=== PATIENT | female | born 1995 | race Caucasian/White ===

== ENCOUNTER 2017-09-06 17:41 | Emergency (ER) | payer OTHER ==
--- NOTE | 2017-09-06 17:56 | PDOC ---
Rapid Medical Evaluation Chief Complaint: Psychiatric Time Seen by Provider: 09/06/17 17:51 Medical Evaluation: Allergies Allergy/AdvReac Type Severity Reaction Status Date / Time No Known Allergies Allergy Verified 09/06/17 17:46 09/06/17 17:51 The patient presents with a chief complaint of: [" I want to talk to a therapist " Wants to hurt herself. H/O anxiety and depression. Was supposed to be on meds , does not want to be reliant on them" . ] I have performed a brief in-person evaluation of this patient. Pertinent physical exam findings: vss, [Lungs clear, Crying, Tachycardic, Admitting to wanting to hurt herself. Has a plan to cut herself. ] I have ordered the following: [one to one obs, cbc, cmp, ETOH, UA, urine tox, urine culture] The patient will proceed to the ED for further evaluation. Discharge Disposition - Diagnosis Anxiety, Suicidal ideation - Referrals - Patient Instructions - Post Discharge Activity
[2017-09-06 17:59] VITALS: BMI 26.2
[2017-09-06 18:29] LABS: BASO % 0.3 % (0-2.0); EOS % 1.3 % (0-4.5); HEMATOCRIT 36.7 % (32.4-45.2); HEMOGLOBIN 11.7 GM/dL (10.7-15.3); LYMPH % 33.5 % (8-40); MCH 25.5 pg (25.7-33.7); MCHC 31.7 g/dl (32.0-36.0); MEAN CELL VOLUME 80.3 fl (80-96); MEAN PLT VOLUME 9.4 fl (7.5-11.1); MONO % 7.6 % (3.8-10.2); NEUT % 57.3 % (42.8-82.8); PLATELET COUNT 203 K/MM3 (134-434); RBC 4.57 M/mm3 (3.60-5.2); RDW 16.5 % (11.6-15.6)
[2017-09-06 18:31] LABS: HCG,QUALITATIVE URINE NEGATIVE
[2017-09-06 18:34] LABS: URINE APPEARANCE CLEAR; URINE BILIRUBIN NEGATIVE (NEGATIVE); URINE BLOOD NEGATIVE (NEGATIVE); URINE COLOR STRAW; URINE GLUCOSE (UA) NEGATIVE (NEGATIVE); URINE KETONE 1+ (NEGATIVE); URINE LEUK ESTERASE NEGATIVE (NEGATIVE); URINE NITRITE NEGATIVE (NEGATIVE); URINE PROTEIN NEGATIVE (NEGATIVE); URINE UROBILINOGEN NEGATIVE mg/dL (0.2-1.0)
[2017-09-06 18:44] LABS: COCAINE, UR NEGATIVE ng/ml (CUTOFF=300); METHADONE, UR NEGATIVE ng/ml (CUTOFF=300); OPIATES, URI NEGATIVE ng/ml (CUTOFF=300); PHENCYCLIDINE,URINE NEGATIVE ng/ml (CUTOFF=25); URINE AMPHETAMINES NEGATIVE ng/ml (CUTOFF=500); URINE BARBITURATES NEGATIVE ng/ml (CUTOFF=200); URINE BENZODIAZEPINES NEGATIVE ng/ml (CUTOFF=200)
[2017-09-06 18:51] LABS: ALBUMIN 4.2 g/dl (3.4-5.0); ANION GAP 9 (8-16); BILIRUBIN,TOTAL 0.3 mg/dL (0.2-1.0); BLOOD UREA NITROGEN 8 mg/dL (7-18); CALCIUM 8.5 mg/dL (8.5-10.1); CHLORIDE 107 mmol/L (98-107); CO2 23 mmol/L (21-32); CREATININE 0.6 mg/dL (0.55-1.02); GLUCOSE,RANDOM 85 mg/dL (74-106); POTASSIUM 3.7 mmol/L (3.5-5.1); SGOT/AST 20 U/L (15-37); SGPT/ALT 42 U/L (12-78); SODIUM 139 mmol/L (136-145)
[2017-09-06 18:52] LABS: ALK PHOS 82 U/L (45-117); TOT PROT 7.7 g/dl (6.4-8.2)
--- NOTE | 2017-09-06 19:24 | PDOC ---
History of Present Illness - General Chief Complaint: Psychiatric Stated Complaint: EVALUATION Time Seen by Provider: 09/06/17 17:51 History Source: Patient - History of Present Illness Initial Comments: 22 year old female with depressive thought, frequent crying and feeling worthless for " several months" presented to the ED with suicidal ideation. Patient reports often thinking about overdosing herself. As per patient seen in [facility] for depression offered admission and patient refused.patient has not seen the therapist since that visit. patient reports, " i thought i could do it myself." Patient reports feeling anxious at work. Patient is crying consolable thourghout the interaction. no eye contact. family history : mother and maternal grandfather with psychiatrist problems including depression; Father with history of anxiety/. Past History - Past Medical History Allergies/Adverse Reactions: Allergies No Known Allergies Allergy (Verified 09/06/17 17:46) Home Medications: Ambulatory Orders NK [No Known Home Medication] 09/06/17 Psychosocial History: Yes: anxiety, panic attacks, other (asthma) - Family History Significant Family History: Yes: other (mother and grandfather with depression, father with anxiety) - Reproductive History Is Patient Now?: No - Immunization History Immunization Up to Date: Yes - Social History Smoking Status: Never smoked *Review of Systems - Review of Systems Able to Perform ROS?: Yes Constitutional: No: Symptoms Reported, See HPI, Chills, Diaphoresis, Fever, Loss of Appetite, Malaise, Night Sweats, Weakness, Weight Stable, Unintentional Wgt. Loss, Unexplained wgt Loss, Other Psychiatric: Yes: Depression, Frequent Crying, Stressors, Sleep Pattern Change *Physical Exam - Vital Signs Last Vital Signs Temp Pulse Resp BP Pulse Ox 98.0 F 91 H 18 150/83 100 09/06/17 17:48 09/06/17 17:48 09/06/17 17:48 09/06/17 17:48 09/06/17 17:48 - Physical Exam General Appearance: Yes: Appropriately Dressed, Other (crying) Respiratory/Chest: positive: Lungs Clear, Normal Breath Sounds Cardiovascular: positive: Regular Rhythm Gastrointestinal/Abdominal: positive: Normal Bowel Sounds, Soft Extremity: positive: Normal Capillary Refill, Normal Inspection, Normal Range of Motion Integumentary: positive: Dry, Warm Neurologic: positive: Fully Oriented, Alert Plan - Order(s) Order(s): Orders Medication Instructions Recorded NK [No Known Home Medication] 09/06/17 - Laboratory CBC & Chemistry Diagram: 09/06/17 18:12 09/06/17 18:12 Lab/Micro Results: 09/06/17 09/06/17 09/06/17 18:15 18:15 18:12 Sodium 139 Potassium 3.7 Chloride 107 Carbon Dioxide 23 Anion Gap 9 BUN 8 Creatinine 0.6 Creat Clearance w eGFR > 60 Random Glucose 85 Calcium 8.5 Total Bilirubin 0.3 AST 20 ALT 42 Alkaline Phosphatase 82 Total Protein 7.7 Albumin 4.2 Urine Color Straw Urine Appearance Clear Urine pH 6.0 Ur Specific Conway 1.011 Urine Protein Negative Urine Glucose (UA) Negative Urine Ketones 1+ H Urine Blood Negative Urine Nitrite Negative Urine Bilirubin Negative Urine Urobilinogen Negative Ur Leukocyte Esterase Negative Urine HCG, Qual Negative Opiates Screen Negative Methadone Screen Negative Barbiturate Screen Negative Phencyclidine Screen Negative Ur Amphetamines Screen Negative MDMA (Ecstasy) Screen Negative Benzodiazepines Screen Negative Cocaine Screen Negative U Marijuana (THC) Screen Negative 09/06/17 18:12 RBC 4.57 MCV 80.3 MCHC 31.7 L RDW 16.5 H MPV 9.4 Neutrophils % 57.3 Lymphocytes % 33.5 Monocytes % 7.6 Eosinophils % 1.3 Basophils % 0.3 - Consult/PCP Time Called: 19:35 (left message with Dr. magallon) Case discussed with consulting physician: Jose De Jesus Magallon (I spoke to Dr. magallon. patien to be evaluated in the AM by psychiatrist. ) *DC/Admit/Observation/Transfer Diagnosis at time of Disposition: Anxiety, Suicidal ideation - Referrals Referrals: Ana Shell MD [Primary Care Provider] - - Patient Instructions - Post Discharge Activity
--- NOTE | 2017-09-07 08:08 | PDOC ---
*Physical Exam - Vital Signs Last Vital Signs Temp Pulse Resp BP Pulse Ox 98.0 F 76 17 106/60 100 09/06/17 17:48 09/07/17 06:56 09/07/17 06:56 09/07/17 06:56 09/07/17 06:56 - Physical Exam Comments: 09/07/17 08:08 Crying intermittently throughout eval General Appearance: Yes: Appropriately Dressed HEENT: positive: Normal Voice Neck: positive: Supple Respiratory/Chest: negative: Respiratory Distress Extremity: positive: Other Integumentary: positive: Dry, Warm Neurologic: positive: Fully Oriented, Alert, Normal Mood/Affect ED Treatment Course - LABORATORY CBC & Chemistry Diagram: 09/06/17 18:12 09/06/17 18:12 - ADDITIONAL ORDERS Additional order review: 09/06/17 18:12 RBC 4.57 MCV 80.3 MCHC 31.7 L RDW 16.5 H MPV 9.4 Neutrophils % 57.3 Lymphocytes % 33.5 Monocytes % 7.6 Eosinophils % 1.3 Basophils % 0.3 - Consult/PCP Time Called: 19:35 (left message with Dr. magallon) Case discussed with consulting physician: Jose De Jesus Magallon (I spoke to Dr. magallon. patien to be evaluated in the AM by psychiatrist. ) Medical Decision Making - Medical Decision Making 09/07/17 07:57 Patient signed out to me at 7 AM by RITA Venegas 22-year-old female, history of depression, BIB father with worsening depression and intermittent suicidal ideation. Pt interviewed without father at bedside and tells me she has had depression since eighth grade. Not able to point to any obvious source, but states she has been bullied, mostly at school her, entire life. Pt currently lives at home with parents and siblings. Does not go to school but is currently employed. Pt states mother has depression "when it 's cold outside". Father admits to having anxiety his entire life. States she has periods of high and low moods and that the low moods come on spontaneously. Pt admits to thoughts of suicide "at times" but has never had a plan or made an attempt. Denies any suicidal ideation at this time and has never hallucinated. No HI. Patient states she has seen a therapist in the past for "anxiety" and that they gave her medication, which she never took meds for unclear reasons. States she is finally ready for help because symptoms have gotten worse recently. Patient was asked by me if she wants to be or thinks she need to be admitted, at which point pt says no. After further discussion, patient states her desire is to start seeing a psychiatrist. I also had conversation with father separately who appears overwhelmed. States daughter seems unhappy at home and is always angry and does not want to listen. Father agrees that patient needs help at this point agreed to wait long enough in ED so I can make an appointment for patient. 1:1 remains at bedside 09/07/17 09:40 I contacted adolescent psych clinic in the [place] at [address] and was able to make an appointment for patient for this . Patient and parent given information and will follow-up. Strict return precautions given to pt and family. Patient discharged in stable condition and denies any suicidal or homicidal ideation at time of discharge. Feels safe going home. Dr. Magallon was contacted and given update *DC/Admit/Observation/Transfer Diagnosis at time of Disposition: Anxiety, Suicidal ideation Depression Qualifiers: Depression Type: unspecified Qualified Code(s): F32.9 - Major depressive disorder, single episode, unspecified - Discharge Dispostion Disposition: HOME Condition at time of disposition: Improved - Referrals Referrals: Ana Shell MD [Primary Care Provider] - - Patient Instructions Printed Discharge Instructions: Depression Additional Instructions: You have an appointment at [facility], which is located at [address] [place], [address]. Their phone number is [phone]. Your appointment is this September 09 at 12 noon. They are located on the first floor. If symptoms worsen prior to your appointment, return to the ER immediately - Post Discharge Activity
[2017-09-07 10:05] VITALS: BP 113/66; PULSE 69; TEMP 98.2
== END 2017-09-07 10:05 | disposition home or self-care (01) ==
LOC: JER 17:41
DX: F32.9 Major depressive disorder, single episode, unspecified (principal)
CPT/HCPCS: 36415; 80053; 80307; 81003; 84443; 84703; 85025; 87086; 99283-25

== ENCOUNTER 2019-01-05 13:06 | Emergency (ER) | payer OTHER ==
[2019-01-05 13:22] VITALS: BP 141/94; PULSE 103; TEMP 98; BMI 31.0
--- NOTE | 2019-01-05 13:22 | PDOC ---
Rapid Medical Evaluation Time Seen by Provider: 01/05/19 13:19 Medical Evaluation: Allergies Allergy/AdvReac Type Severity Reaction Status Date / Time No Known Allergies Allergy Verified 09/06/17 17:46 01/05/19 13:19 I have performed a brief in-person evaluation of this patient. The patient presents with a chief complaint of: itching rash x 1 week intermittent, eyes feel heavy, took claritin and "something OTC" w/o relief Pertinent physical exam findings: well appearing, excoriated lesions to arms I have ordered the following: nothing The patient will proceed to the ED for further evaluation.
--- NOTE | 2019-01-05 15:07 | PDOC ---
History of Present Illness - General Chief Complaint: Rash Stated Complaint: ALLERGIC REACTION Time Seen by Provider: 01/05/19 13:19 History Source: Patient Exam Limitations: No Limitations - History of Present Illness Initial Comments: 01/05/19 15:07 Patient here with an outbreak of worsening eczema. States was at work last weekend, had an onset of acute itching swelling and an ALLERGIC type rash covering most of body including face which spontaneously resolved. States incident reoccurred today. Denies any changes in soaps, topical creams, environmental issues. Was seen by dermatology earlier in the week and prescribed heavy steroid cream which she has just started using last night. Patient denies any swelling to lips, tongue problems. Denies any fevers or evidence of infection to these areas of itching, denies any exposure to contagious diseases. Patient suffers from severe eczema Timing/Duration: reports: getting worse, intermittent Location: reports: extremities, face, generalized, hands, torso Respiratory Risk Factors: reports: no cause identified Modifying Factors: improves with: antihistamine, scratching, topical steriods Past History - Travel Traveled outside of the country in the last 30 days: No Close contact w/someone who was outside of country & ill: No - Past Medical History Allergies/Adverse Reactions: Allergies Allergy/AdvReac Type Severity Reaction Status Date / Time No Known Allergies Allergy Verified 01/05/19 13:22 Home Medications: Ambulatory Orders NK [No Known Home Medication] 09/06/17 Asthma: Yes COPD: No Psychiatric Problems: Yes (ANXIETY) - Surgical History Appendectomy: Yes - Immunization History Immunization Up to Date: Yes - Suicide/Smoking/Psychosocial Hx Smoking History: Unknown if ever smoked Have you smoked in the past 12 months: No Information on smoking cessation initiated: No Hx Alcohol Use: No Drug/Substance Use Hx: No Substance Use Type: None Review of Systems - Review of Systems Able to Perform ROS?: Yes Is the patient limited Lithuanian proficient: Yes Constitutional: Yes: Symptoms Reported, See HPI, Malaise HEENTM: Yes: See HPI. No: Symptoms Reported, Nose Congestion, Throat Swelling, Mouth Pain, Mouth Swelling Respiratory: Yes: See HPI. No: Symptoms reported, Cough, Wheezing Cardiac (ROS): Yes: Symptoms Reported : No: Symptoms Reported Musculoskeletal: Yes: Symptoms Reported, See HPI Integumentary: Yes: Symptoms Reported Neurological: No: Symptoms reported All Other Systems: Reviewed and Negative *Physical Exam - Vital Signs Last Vital Signs Temp Pulse Resp BP Pulse Ox 98.0 F 103 H 16 141/94 100 01/05/19 13:20 01/05/19 13:20 01/05/19 13:20 01/05/19 13:20 01/05/19 13:20 - Physical Exam General Appearance: Yes: Nourished, Appropriately Dressed, Apparent Distress, Mild Distress HEENT: positive: DONALD, TMs Normal, Pharynx Normal Neck: positive: Supple. negative: Tender, Lymphadenopathy (R) (no swelling,) Respiratory/Chest: positive: Lungs Clear, Normal Breath Sounds Gastrointestinal/Abdominal: positive: Soft. negative: Tender Extremity: positive: Normal Capillary Refill, Normal Inspection, Normal Range of Motion Integumentary: positive: Dry, Pale, Rash, Other ( wasn't significant and severe eczematous lesions covering most of body, with deep thickness excoriation on wrists and forearms. Has small patches to face, chest wall, back. No areas noted with wheals or hives. All areas appear to be consistent with an eczema outbreak.) Neurologic: positive: churner II-XII NML intact, Fully Oriented, Alert, Normal Mood/ Affect, Normal Response, Motor Strength 5/5 Progress Note - Progress Note Progress Note: Severe eczema, will treat with 1 dose of by mouth Decadron. Patient encouraged to use conservative measures but reports being ALLERGIC to bleach and having difficult times with heavy emollient creams. Is under the care of a enrollment manager and has appointment with monitor tech in 3 weeks. *DC/Admit/Observation/Transfer Diagnosis at time of Disposition: Eczema Qualifiers: Eczema type: unspecified Qualified Code(s): L30.9 - Dermatitis, unspecified - Discharge Dispostion Disposition: HOME Condition at time of disposition: Stable Decision to Admit order: No - Referrals Referrals: Ana Shell MD [Primary Care Provider] - - Patient Instructions Additional Instructions: Rest, keep cool and dry- avoid strenuous activity or hot /humid environments Less hot showers, no abrasive soaps May use heavy creams like Eucerin or Cetaphil to keep skin moist , Vaseline currently recommended for better hydrating purpose May use Benadryl at night for antihistamine, Zyrtec/ Sarah or Claritin for daytime antihistamine use to help with itching You have been given 1 dose of Decadron 10 mg for 1 time dose of long-acting steroid Bleach baths, one half cup in a full tub of water creating a dilute solution and soaking for proximally 10 minutes. This chlorine is less strong than swimming pool if properly diluted. Will not discolor skin, avoid splashing in face or eyes. This will decolonize/decontaminate skin from the bacteria that may be causing worsened eczema and itching. Some doctors recommend daily until severe episode is resolving then twice a week until healed Followup with PMD in one week if no resolution Make appointment with enrollment manager for evaluation when possible - Post Discharge Activity Forms/Work/School Notes: Back to Work
[2019-01-05] MEDS ORDERED: DEXAMETHASONE LIQUID 0.5 MG/5 ML 240 ML BULK BOTTLE PO ONE (15:08)
[2019-01-05] MEDS ORDERED: DEXAMETHASONE SOD PHOSPHATE 10 MG/1 ML VIAL ONE (15:17)
== END 2019-01-05 15:26 | disposition home or self-care (01) ==
LOC: JERFT 13:06
DX: L30.9 Dermatitis, unspecified (principal)
CPT/HCPCS: 99281-25

== ENCOUNTER 2019-05-22 19:27 | Emergency (ER) | payer OTHER ==
[2019-05-22 19:34] VITALS: BP 139/79; PULSE 94; TEMP 99.1; BMI 31.2
--- NOTE | 2019-05-22 20:35 | PDOC ---
History of Present Illness - General Chief Complaint: Ear Problem Stated Complaint: EAR PAIN Time Seen by Provider: 05/22/19 20:34 History Source: Patient - History of Present Illness Initial Comments: 05/22/19 21:02 Chief complaint: Ear pain Patient 24-year-old with no significant medical history who states that last week she had some right ear pain that went away and that the other day she started having left ear pain which is getting worse. Patient feels like she has a pimple in her ear. Patient denies fever but says she has significant pain and has difficulty opening jaw. Patient last took Tylenol 7 hours ago. Patient also states that she put some toothpaste in her ear to help it get better. GENERAL/CONSTITUTIONAL: No fever, weakness. dizziness HEAD, EYES, EARS, NOSE AND THROAT: No change in vision. No ear pain or discharge. No sore throat.+ Left ear pain CARDIOVASCULAR: No chest pain RESPIRATORY: No shortness of breath or cough GASTROINTESTINAL: No pain, nausea, vomiting, diarrhea or constipation GENITOURINARY: No dysuria MUSCULOSKELETAL: No neck or back pain SKIN: No rash NEUROLOGIC: No headache, vertigo, loss of consciousness, or loss of sensation. GENERAL: The patient is awake, alert, and fully oriented, in no acute distress. HEAD: Normal with no signs of trauma. EYES: Pupils equal, round and reactive to light, sclera anicteric, conjunctiva clear. ENT: Right ear clear, some darkening of TM, left ear with inability to see in canal due to swelling, no discharge, no erythema. Painful to move. pharynx: no erythema, no exudate, uvula midline NECK: supple CHEST: clear, nontender, rr ABD: soft, nontender BACK: no tenderness or signs of injury EXTREMITIES: Normal range of motion, no edema. NEUROLOGICAL: Normal speech, normal gait. SKIN: Warm, Dry Past History - Past Medical History Allergies/Adverse Reactions: Allergies Allergy/AdvReac Type Severity Reaction Status Date / Time No Known Allergies Allergy Verified 05/22/19 19:34 Home Medications: Ambulatory Orders Fluoxetine HCl [Prozac] 1 01/05/19 Acetaminophen W/ Codeine #3 [Tylenol # 3 -] 1 tab PO Q4H PRN #12 tablet MDD 6 Ciprofloxacin HCl [Cipro] 500 mg PO BID #14 tablet 05/22/19 Asthma: Yes COPD: No Psychiatric Problems: Yes (ANXIETY) - Surgical History Appendectomy: Yes - Immunization History Immunization Up to Date: Yes - Psycho Social/Smoking Cessation Hx Smoking History: Never smoked Have you smoked in the past 12 months: No Hx Alcohol Use: No Drug/Substance Use Hx: No Substance Use Type: None *Physical Exam - Vital Signs Last Vital Signs Temp Pulse Resp BP Pulse Ox 99.1 F 94 H 18 139/79 99 05/22/19 19:32 05/22/19 19:32 05/22/19 19:32 05/22/19 19:32 05/22/19 19:32 Medical Decision Making - Medical Decision Making 05/22/19 21:04 Patient with severe otitis externa to the left ear, no fever, no signs of cellulitis, unable to examine in the ear. Unable to place wick. Patient will be started on Cipro, patient given information for [facility] and given instructions how to access the website [email or web address] to find a doctor who takes her insurance so she can be seen there tomorrow. Patient appears well and vital signs are stable. There is no signs of malignant externa Discussed issues, findings, results, applicable medications and treatments and follow-up. All these were understood and all questions were answered Discharge - Discharge Information Problems reviewed: Yes Clinical Impression/Diagnosis: Otitis externa Qualifiers: Otitis externa type: diffuse Chronicity: acute Laterality: left Qualified Code( s): H60.312 - Diffuse otitis externa, left ear Condition: Stable Disposition: HOME - Admission No - Additional Discharge Information Prescriptions: Acetaminophen W/ Codeine #3 [Tylenol # 3 -] 1 tab PO Q4H PRN #12 tablet MDD 6 PRN Reason: Pain Ciprofloxacin HCl [Cipro] 500 mg PO BID #14 tablet - Follow up/Referral Referrals: Ana Shell MD [Primary Care Provider] - - Patient Discharge Instructions Patient Printed Discharge Instructions: DI for Otitis Externa Additional Instructions: Your ear is too swollen to put the drops in. Take the Cipro as directed Take Motrin 600 mg every 6 hours and Tylenol with codeine every 4 hours Follow-up with ENT doctor tomorrow Return to the ER if worse instead of better go on website [email or web address] for [employer] and follow instructions to schedule an appointment for tomorrow - Post Discharge Activity
[2019-05-22] MEDS ORDERED: IBUPROFEN 600 MG TABLET (FP) PO ONE ×2 (20:46→20:48)
[2019-05-22] MEDS ORDERED: ACETAMINOPHEN WITH CODEINE 300MG/30MG TABLET PO ONE (20:46)
[2019-05-22] MEDS ORDERED: ACETAMINOPHEN WITH CODEINE 300MG/30MG TABLET ONE (20:48)
== END 2019-05-22 21:00 | disposition home or self-care (01) ==
LOC: JERFT 19:27
DX: H60.312 Diffuse otitis externa, left ear (principal); F41.9 Anxiety disorder, unspecified; Z87.09 Personal history of other diseases of the respiratory system
CPT/HCPCS: 99281-25

== ENCOUNTER 2019-06-20 16:26 | Emergency (ER) | payer OTHER ==
--- NOTE | 2019-06-20 16:33 | PDOC ---
Rapid Medical Evaluation Time Seen by Provider: 06/20/19 16:31 Medical Evaluation: Allergies Allergy/AdvReac Type Severity Reaction Status Date / Time No Known Allergies Allergy Verified 05/22/19 19:34 06/20/19 16:32 CC: 7 wks with vaginal bleeding- 1pad/4 hours. LMP-9/2 PE: deferred Orders: PVB w/u The patient will proceed to the ER for continued Evaluation. Discharge Disposition - Diagnosis Vaginal bleeding during - Referrals - Patient Instructions - Post Discharge Activity
[2019-06-20 16:35] VITALS: BP 134/76; PULSE 94; TEMP 99.5; BMI 29.2
[2019-06-20 17:07] LABS: BASO % 0.4 % (0-2.0); HEMATOCRIT 39.1 % (32.4-45.2); HEMOGLOBIN 13.1 GM/dL (10.7-15.3); LYMPH % 19.2 % (8-40); MCH 28.7 pg (25.7-33.7); MCHC 33.5 g/dl (32.0-36.0); MEAN CELL VOLUME 85.8 fl (80-96); MEAN PLT VOLUME 10.1 fl (7.5-11.1); NEUT % 73.4 % (42.8-82.8); PLATELET COUNT 223 K/MM3 (134-434); RBC 4.56 M/mm3 (3.60-5.2); RDW 14.9 % (11.6-15.6); WHITE BLOOD COUNT 14.8 K/mm3 (4.0-10.0)
[2019-06-20 17:13] LABS: EPI CELLS 0.9 /HPF (0-5/HPF); HYALINE CASTS 0 /lpf (0-8); PH,URINE 5.5 (5.0-8.0); URINE APPEARANCE CLEAR; URINE BILIRUBIN NEGATIVE (NEGATIVE); URINE COLOR YELLOW; URINE GLUCOSE (UA) NEGATIVE (NEGATIVE); URINE KETONE NEGATIVE (NEGATIVE); URINE LEUK ESTERASE NEGATIVE (NEGATIVE); URINE NITRITE NEGATIVE (NEGATIVE); URINE PROTEIN NEGATIVE (NEGATIVE); URINE RBC 1 /hpf (0-4); URINE UROBILINOGEN 0.2 mg/dL (0.2-1.0); URINE WBC 2 /hpf (0-5)
[2019-06-20 17:19] LABS: INR 1.03 (0.83-1.09); PROTHROMBIN TIME (PATIENT) 12.2 SEC (9.7-13.0)
--- NOTE | 2019-06-20 17:21 | PDOC ---
History of Present Illness - General Chief Complaint: Vaginal Bleeding Stated Complaint: 7 WKS /BLEEDING Time Seen by Provider: 06/20/19 16:31 History Source: Patient Exam Limitations: No Limitations - History of Present Illness Travel History: No Initial Comments: 06/20/19 17:59 24-year-old female currently 7 weeks presents to ED with spotting since yesterday after wiping with urination. Patient states had an ultrasound done about a week ago with Dr. Burgess which showed an IUP. Patient states mild lower abdominal cramping yesterday but none today. Patient states bleeding has subsided. And has no other complaints at this time. Timing/Duration: reports: resolved prior to arrival Pain Radiation: reports: no radiation Activities at Onset: reports: none Aggravating Factors: improves with: None Alleviating Factors: improves with: None Past History - Travel Traveled outside of the country in the last 30 days: No Close contact w/someone who was outside of country & ill: No - Past Medical History Allergies/Adverse Reactions: Allergies Allergy/AdvReac Type Severity Reaction Status Date / Time No Known Allergies Allergy Verified 06/20/19 16:35 Home Medications: Ambulatory Orders Fluoxetine HCl [Prozac] 1 01/05/19 Acetaminophen W/ Codeine #3 [Tylenol # 3 -] 1 tab PO Q4H PRN #12 tablet MDD 6 Ciprofloxacin HCl [Cipro] 500 mg PO BID #14 tablet 05/22/19 Asthma: Yes COPD: No Psychiatric Problems: Yes (ANXIETY) - Surgical History Appendectomy: Yes - Immunization History Immunization Up to Date: Yes - Psycho Social/Smoking Cessation Hx Smoking History: Former smoker Have you smoked in the past 12 months: No Information on smoking cessation initiated: No Hx Alcohol Use: No Drug/Substance Use Hx: No Substance Use Type: None Patient Lives Alone: No Lives with/in: parents Review of Systems - Review of Systems Able to Perform ROS?: Yes Constitutional: No: Symptoms Reported ABD/GI: No: Symptoms Reported : Yes: Discharge *Physical Exam - Vital Signs Last Vital Signs Temp Pulse Resp BP Pulse Ox 99.5 F 94 H 18 134/76 98 06/20/19 16:31 06/20/19 16:31 06/20/19 16:31 06/20/19 16:31 06/20/19 16:31 - Physical Exam General Appearance: Yes: Nourished, Appropriately Dressed. No: Apparent Distress HEENT: negative: Pale Conjunctivae Neck: positive: Normal Thyroid Respiratory/Chest: positive: Lungs Clear, Normal Breath Sounds. negative: Respiratory Distress, Accessory Muscle Use Cardiovascular: positive: Regular Rhythm, Regular Rate. negative: Murmur Female Pelvic Exam: positive: normal external exam, vaginal bleeding (scant dark bron on sanitary pad). negative: discharge Gastrointestinal/Abdominal: positive: Soft. negative: Tenderness Integumentary: positive: Normal Color, Warm, Moist Neurologic: positive: Motor Strength 5/5 (Ambulatory) ED Treatment Course - LABORATORY CBC & Chemistry Diagram: 06/20/19 16:46 06/20/19 16:46 Medical Decision Making - Medical Decision Making 06/20/19 18:10 Chief complaint: Patient with spotting intermittently since yesterday but resolved this afternoon. Patient states had a confirmed IUP last week and has no complaints presently. Exam: No abdominal tenderness vital signs stable. scant dark brown vaginal bleeding at this time Plan: Labs, urine ultrasound ordered 06/20/19 18:48 Percent shows a single live intrauterine measuring 7 weeks 2 days with heart rate of 144 bpm. Labs unremarkable. Patient recommended to follow-up with her [employer] and continue to take her vitamins. 06/20/19 18:49 Laboratory Tests 06/20/19 06/20/19 06/20/19 16:46 16:46 16:46 WBC 14.8 H Hgb 13.1 Hct 39.1 Absolute Neuts (auto) 10.9 H Sodium 137 Potassium 3.7 Chloride 103 Carbon Dioxide 24 Anion Gap 9 BUN 6.9 L Creatinine 0.5 L Beta HCG, Quant 90865.1 Urine Blood Urine Bilirubin Urine Urobilinogen Ur Leukocyte Esterase Urine WBC (Auto) Urine RBC (Auto) Urine HCG, Qual Positive 06/20/19 16:46 WBC Hgb Hct Absolute Neuts (auto) Sodium Potassium Chloride Carbon Dioxide Anion Gap BUN Creatinine Beta HCG, Quant Urine Blood 2+ H Urine Bilirubin Negative Urine Urobilinogen 0.2 Ur Leukocyte Esterase Negative Urine WBC (Auto) 2 Urine RBC (Auto) 1 Urine HCG, Qual Discharge - Discharge Information Problems reviewed: Yes Clinical Impression/Diagnosis: Vaginal bleeding during Condition: Good Disposition: HOME - Follow up/Referral - Patient Discharge Instructions Patient Printed Discharge Instructions: DI for Vaginal Bleeding During Additional Instructions: Continue to take your vitamins follow-up with your [employer]. - Post Discharge Activity
[2019-06-20 17:22] LABS: ACTIVATED PTT 35.9 SECONDS (25.2-36.5)
[2019-06-20 18:20] LABS: BLOOD UREA NITROGEN 6.9 mg/dL (7-18); CALCIUM 9.8 mg/dL (8.5-10.1); CREATININE 0.5 mg/dL (0.55-1.3); POTASSIUM 3.7 mmol/L (3.5-5.1)
== END 2019-06-20 18:30 | disposition home or self-care (01) ==
LOC: JER 16:26
DX: O26.891 Other specified pregnancy related conditions, first trimester (principal); O20.8 Other hemorrhage in early pregnancy; O99.341 Other mental disorders complicating pregnancy, first trimester; F41.8 Other specified anxiety disorders; Z3A.01 Less than 8 weeks gestation of pregnancy; Z87.891 Personal history of nicotine dependence
CPT/HCPCS: 36415; 76817-TC; 80048; 81003; 84702; 84703; 85025; 85610; 85730; 86850; 86900; 86901; 87086; 99283-25

== ENCOUNTER 2019-07-27 11:31 | Emergency (ER) | payer OTHER ==
[2019-07-27 11:52] VITALS: BP 124/65; PULSE 70; TEMP 98; BMI 29.2
[2019-07-27] MEDS ORDERED: IBUPROFEN 600 MG TABLET (FP) PO ONE ×2 (12:27→12:33)
--- NOTE | 2019-07-27 12:54 | PDOC ---
History of Present Illness - General Chief Complaint: Injury Stated Complaint: ANKLE INJURY Time Seen by Provider: 07/27/19 12:08 History Source: Patient Exam Limitations: No Limitations - History of Present Illness Initial Comments: 07/27/19 12:50 24-year-old female denies past medical history reports complaining of left ankle pain and swelling sustained after injury while playing soccer last night. Patient is unsure of the mechanism of injury however denies striking the ground, head injury, numbness, tingling, any other injuries or complaints. Patient denies taking any pain medication or applying ice to the area. ROS: GENERAL/CONSTITUTIONAL: No fever, chills, weakness, dizziness HEAD, EYES, EARS, NOSE AND THROAT: No changes in vision, No ear pain or discharge, No sore throat CARDIOVASCULAR: No chest pain RESPIRATORY: No shortness of breath or cough GASTROINTESTINAL: No pain, nausea, vomiting, diarrhea or constipation GENITOURINARY: No dysuria MUSCULOSKELETAL: Left ankle pain, no neck or back pain SKIN: No rash NEUROLOGIC: No headache, vertigo, loss of consciousness, or loss of sensation PE: GENERAL: well-appearing, NAD HEAD: NCAT EYES: Pupils equal, round and reactive to light, sclera anicteric, conjunctiva clear ENT: pharynx: no erythema, no exudate, uvula midline NECK: supple CHEST: nontender RESP: clear, no w/r/r CARDIO: rrr, no m/g/r ABD: +BS, soft, nontender, non distended BACK: no midline spinal ttp, no CVAT EXTREMITIES: Swelling to left lateral malleolus area, no ecchymosis, positive pedal pulses, normal range of motion NEUROLOGICAL: Normal speech, walking with slight limp SKIN: Warm, Dry Is this a multiple visit Asthma Patient?: No Past History - Past Medical History Allergies/Adverse Reactions: Allergies Allergy/AdvReac Type Severity Reaction Status Date / Time No Known Allergies Allergy Verified 07/27/19 11:51 Home Medications: Ambulatory Orders Fluoxetine HCl [Prozac] 1 01/05/19 Acetaminophen W/ Codeine #3 [Tylenol # 3 -] 1 tab PO Q4H PRN #12 tablet MDD 6 Ciprofloxacin HCl [Cipro] 500 mg PO BID #14 tablet 05/22/19 Asthma: Yes COPD: No Psychiatric Problems: Yes (ANXIETY) - Surgical History Appendectomy: Yes - Reproductive History Para: 0 - Immunization History Immunization Up to Date: Yes - Psycho Social/Smoking Cessation Hx Smoking History: Never smoked Have you smoked in the past 12 months: No Hx Alcohol Use: No Drug/Substance Use Hx: No Substance Use Type: None *Physical Exam - Vital Signs Last Vital Signs Temp Pulse Resp BP Pulse Ox 98 F 70 18 124/65 99 07/27/19 11:49 07/27/19 11:49 07/27/19 11:49 07/27/19 11:49 07/27/19 11:49 ED Treatment Course - RADIOLOGY Radiology Studies Ordered: Category Date Time Status ANKLE-LEFT [RAD] Stat Radiology 07/27/19 12:26 Taken - Medications Given in the ED: ED Medications Discontinued Medications Generic Name Dose Route Start Last Admin Trade Name Freq PRN Reason Stop Dose Admin Ibuprofen 600 mg 07/27/19 12:27 07/27/19 12:34 Motrin - PO 07/27/19 12:28 600 mg ONCE ONE Administration Medical Decision Making - Medical Decision Making 07/27/19 12:54 24-year-old female denies past medical history complaining of left ankle pain status post injury while playing soccer last night. Left ankle x-ray read by me-no acute bony findings noted RICE Ibuprofen 600 mg p.o. x1 Percy bandage applied Note for work provided Use crutches as directed Return to ED if symptoms worsen Discharge - Discharge Information Problems reviewed: Yes Clinical Impression/Diagnosis: Left ankle sprain Qualifiers: Encounter type: initial encounter Involved ligament of ankle: unspecified ligament Qualified Code(s): S93.402A - Sprain of unspecified ligament of left ankle, initial encounter Condition: Stable Disposition: HOME - Admission No - Follow up/Referral Referrals: Ana Shell MD [Primary Care Provider] - - Patient Discharge Instructions Additional Instructions: Rest, apply ice, wear Percy bandage, elevate Take ibuprofen 600mg every 6 hours as needed for pain Use crutches as needed for ambulation Note for work provided Return precautions discussed - Post Discharge Activity Work/Back to School Note: Back to Work
== END 2019-07-27 13:07 | disposition home or self-care (01) ==
LOC: JERFT 11:31
DX: S93.402A Sprain of unspecified ligament of left ankle, initial encounter (principal); X58.XXXA Exposure to other specified factors, initial encounter; Y93.66 Activity, soccer; Y92.322 Soccer field as the place of occurrence of the external cause; F41.9 Anxiety disorder, unspecified; J45.909 Unspecified asthma, uncomplicated
CPT/HCPCS: 73610-TC-LT-FY; 99281-25

== ENCOUNTER 2019-10-19 21:40 | Emergency (ER) | payer OTHER ==
[2019-10-19 21:43] VITALS: BP 143/99; PULSE 74; TEMP 98.6; BMI 29.9
--- NOTE | 2019-10-19 22:21 | PDOC ---
History of Present Illness - General Chief Complaint: Sore Throat Stated Complaint: COUGH/FEVER Time Seen by Provider: 10/19/19 21:58 History Source: Patient Exam Limitations: Clinical Condition - History of Present Illness Initial Comments: 10/19/19 22:22 Patient with no significant past medical history presented with complaint of 5- day history of nasal congestion, throat irritation, postnasal drip and intermittent cough. Denies fever, chills, nausea, vomiting, diarrhea or constipation. Patient has not taken anything for symptom. Reports symptoms has been intermittent. Denies recent travel or sick contact. Denies any other symptoms Is this a multiple visit Asthma Patient?: No Timing/Duration: other (5 days) Past History - Past Medical History Allergies/Adverse Reactions: Allergies Allergy/AdvReac Type Severity Reaction Status Date / Time No Known Allergies Allergy Verified 10/19/19 21:43 Home Medications: Ambulatory Orders Fluoxetine HCl [Prozac] 1 01/05/19 Acetaminophen W/ Codeine #3 [Tylenol # 3 -] 1 tab PO Q4H PRN #12 tablet MDD 6 05/22/19 Ciprofloxacin HCl [Cipro] 500 mg PO BID #14 tablet 05/22/19 Benzonatate [Tessalon Pearls -] 100 mg PO Q8H PRN #21 capsule 10/19/19 Ipratropium [place] 2 spray NS BID PRN 5 Days #1 spray 10/19/19 Montelukast Na [Singulair -] 10 mg PO HS #7 tablet 10/19/19 Asthma: Yes COPD: No Psychiatric Problems: Yes (ANXIETY) - Surgical History Appendectomy: Yes - Reproductive History Para: 0 - Immunization History Immunization Up to Date: Yes - Psycho Social/Smoking Cessation Hx Smoking History: Never smoked Have you smoked in the past 12 months: No Hx Alcohol Use: No Drug/Substance Use Hx: No Substance Use Type: None Review of Systems - Review of Systems Able to Perform ROS?: Yes Is the patient limited Welsh proficient: No Constitutional: No: Chills, Fever, Malaise HEENTM: Yes: Symptoms Reported, See HPI, Nose Congestion, Throat Pain (intermittent). No: Eye Pain, Blurred Vision, Tearing, Recent change in vision, Double Vision, Cataracts, Ear Pain, Ocular Prothesis, Ear Discharge, Nose Pain, Tinnitus, Nose Bleeding, Hearing Loss, Throat Swelling, Mouth Pain, Dental Problems, Difficulty Swallowing, Mouth Swelling, Other Respiratory: Yes: Symptoms reported, See HPI, Cough. No: Orthopnea, Shortness of Breath, SOB with Exertion, SOB at Rest, Stridor, Wheezing, Productive cough, Hemoptysis, Other Cardiac (ROS): No: Symptoms Reported, See HPI, Chest Pain, Edema, Irregular Heart Rate, Lightheadedness, Palpitations, Syncope, Chest Tightness, Other ABD/GI: No: Symptoms Reported, Nausea, Vomiting Integumentary: No: Symptoms Reported, Rash All Other Systems: Reviewed and Negative *Physical Exam - Vital Signs Last Vital Signs Temp Pulse Resp BP Pulse Ox 98.6 F 74 18 143/99 100 10/19/19 21:41 10/19/19 21:41 10/19/19 21:41 10/19/19 21:41 10/19/19 21:41 - Physical Exam 10/19/19 22:24 GENERAL: Well developed, well nourished. Awake and alert. No acute distress. HEENT: Bilateral nasal congestion. Normocephalic, atraumatic. PERRLA, EOMI. No conjunctival pallor. Sclera are non-icteric. Moist mucous membranes. Oropharynx is clear. NECK: Supple. Full ROM. CARDIOVASCULAR: Regular rate and rhythm. No murmurs, rubs, or gallops. Distal pulses are 2+ and symmetric. PULMONARY: No evidence of respiratory distress. Lungs clear to auscultation bilaterally. No wheezing, rales or rhonchi. ABDOMINAL: Soft. Non-tender. Non-distended. No rebound or guarding. No organomegaly. Normoactive bowel sounds. MUSCULOSKELETAL Normal range of motion at all joints. SKIN: Warm and dry. Normal capillary refill. No rashes. No cyanosis. NEUROLOGICAL: Alert, awake, appropriate. Gait is normal without ataxia. PSYCHIATRIC: Cooperative. Good eye contact. Appropriate mood General Appearance: Yes: Nourished, Appropriately Dressed. No: Apparent Distress Medical Decision Making - Medical Decision Making 10/19/19 22:22 Patient with no significant past medical history presented with complaint of 5- day history of nasal congestion, throat irritation, postnasal drip and intermittent cough. Denies fever, chills, nausea, vomiting, diarrhea or constipation. Patient has not taken anything for symptom. Reports symptoms has been intermittent. Denies recent travel or sick contact. Denies any other symptoms Clinical exam unremarkable with lungs clear to auscultation bilateral. Patient afebrile. Patient no acute distress. Bilateral nasal congestion on exam. Patient symptoms likely viral URI and stable for discharge on Tessalon Perles PRN for cough, Atrovent nasal spray and Singulair for nasal congestion with advised to increase fluid intake with PCP follow-up Discharge - Discharge Information Problems reviewed: Yes Clinical Impression/Diagnosis: Viral URI with cough Rhinitis Qualifiers: Rhinitis type: acute Qualified Code(s): J00 - Acute nasopharyngitis [common cold] Condition: Stable Disposition: HOME - Admission No - Additional Discharge Information Prescriptions: Ipratropium [place] 2 spray NS BID PRN 5 Days #1 spray PRN Reason: nasal congestion Montelukast Na [Singulair -] 10 mg PO HS #7 tablet Benzonatate [Tessalon Pearls -] 100 mg PO Q8H PRN #21 capsule PRN Reason: Cough - Follow up/Referral Referrals: Ana Shell MD [Primary Care Provider] - - Patient Discharge Instructions Patient Printed Discharge Instructions: DI for Viral Upper Respiratory Infection -- Adult Additional Instructions: Your symptoms likely caused by viral infection. Take prescribed medication as prescribed for cough and congestion. Increase fluid intake. Follow-up with primary care as needed - Post Discharge Activity
== END 2019-10-19 22:25 | disposition home or self-care (01) ==
LOC: JERFT 21:40
DX: J06.9 Acute upper respiratory infection, unspecified (principal); B97.89 Other viral agents as the cause of diseases classified elsewhere
CPT/HCPCS: 99281-25

== ENCOUNTER 2020-08-22 19:15 | Emergency (ER) | payer OTHER ==
[2020-08-22 19:57] VITALS: TEMP 98.9; BMI 31.2
[2020-08-22] MEDS ORDERED: ALPRAZolam 1 MG TABLET PO PRN (20:56)
[2020-08-22] MEDS ORDERED: ALPRAZolam 0.25 MG TABLET ONE (21:28)
[2020-08-22] MEDS ORDERED: ACETAMINOPHEN 325 MG TABLET (FP) PO ONE (22:53)
[2020-08-22] MEDS ORDERED: ACETAMINOPHEN 325 MG TABLET (FP) ONE (23:38)
[2020-08-23 00:10] VITALS: BP 130/85; PULSE 78
== END 2020-08-23 00:16 | disposition home or self-care (01) ==
LOC: JER 19:15
DX: R07.9 Chest pain, unspecified (principal); R53.1 Weakness
CPT/HCPCS: 93005; 93010; 99284-25

== ENCOUNTER 2022-01-06 21:11 | Emergency (ER) | payer OTHER ==
[2022-01-06 21:48] VITALS: BP 127/84; PULSE 120; TEMP 99.3; BMI 21.4
[2022-01-06] MEDS ORDERED: ONDANSETRON 4 MG/2 ML VIAL IVPUSH ONE (22:36)
[2022-01-06] MEDS ORDERED: SODIUM CHLORIDE 0.9% 500 ML INFUS.BAG IV ONE (22:36)
[2022-01-06] MEDS ORDERED: DEXAMETHASONE SOD PHOSPHATE 10 MG/1 ML VIAL IVPUSH ONE (22:36)
[2022-01-06] MEDS ORDERED: KETOROLAC TROMETHAMINE 30 MG/1 ML VIAL IVPUSH ONE (22:36)
[2022-01-06] MEDS ORDERED: ONDANSETRON 4 MG/2 ML VIAL ONE (22:56)
[2022-01-06] MEDS ORDERED: DEXAMETHASONE SOD PHOSPHATE 10 MG/1 ML VIAL ONE (22:57)
[2022-01-06] MEDS ORDERED: KETOROLAC TROMETHAMINE 30 MG/1 ML VIAL ONE (22:57)
== END 2022-01-07 01:04 | disposition home or self-care (01) ==
LOC: JER 21:11
PROC: 3E033GC Introduction of Other Therapeutic Substance into Peripheral Vein, Percutaneous Approach (ICD-10-PCS; principal; 2022-01-06)
PROC: 3E0333Z Introduction of Anti-inflammatory into Peripheral Vein, Percutaneous Approach (ICD-10-PCS; 2022-01-06)
PROC: 3E033GC Introduction of Other Therapeutic Substance into Peripheral Vein, Percutaneous Approach (ICD-10-PCS; 2022-01-06)
DX: J02.9 Acute pharyngitis, unspecified (principal); R51.9 Headache, unspecified; M79.10 Myalgia, unspecified site
CPT/HCPCS: 0241U-QW; 87651; 99284-25; J1100